=== PATIENT | male | born 1955 | race Hispanic/Latino ===

== ENCOUNTER 2016-09-11 06:45 | Day surgery (SDC) | payer OTHER ==
[2016-09-11] MEDS ORDERED: ECOTRIN PO ONE ×2 (07:41→08:30)
[2016-09-11] MEDS ORDERED: NACL 0.9% 500 ML 500 ML ONE (07:41)
[2016-09-11] MEDS ORDERED: NACL 0.9% 500 ML 500 ML IV SCH (08:00)
[2016-09-11 08:15] LABS: Basophils % (Auto) 0.5 % (0.0-1.8); Eosinophils % (Auto) 1.7 % (0.0-4.3); Hematocrit 46.3 % (35.5-45.6); Hemoglobin 15.9 gm/dl (11.8-15.2); Mean Corpuscular HGB Conc 34 % (32-34); Mean Corpuscular Hemoglobin 34 pg (28-32); Mean Corpuscular Volume 100 fl (84-94); Platelet Count 258 K/mm3 (140-440); Red Blood Count 4.66 M/mm3 (3.65-5.03); Red Cell Distribution Width 13.3 % (13.2-15.2)
[2016-09-11] MEDS ORDERED: HEPARIN/NS 5000 UNIT/500ML(CATH LAB) 1,000 ML IR ONE (08:19)
[2016-09-11] MEDS ORDERED: HEPARIN 10,000 UNITS/10 ML ONE (08:19)
[2016-09-11] MEDS ORDERED: NITROGLYCERIN SYRINGE 0 ML ONE (08:20)
[2016-09-11] MEDS ORDERED: CALAN ONE (08:20)
[2016-09-11] MEDS ORDERED: XYLOCAINE 2% INFILTRATI ONE (08:20)
[2016-09-11] MEDS ORDERED: VERSED ONE (08:21)
[2016-09-11] MEDS ORDERED: SUBLIMAZE ONE (08:21)
[2016-09-11 08:29] LABS: INR 1.01 (0.87-1.13)
[2016-09-11 09:03] LABS: Anion Gap 16 mmol/L; BUN/Creatinine Ratio 14.54; Blood Urea Nitrogen 16 mg/dL (9-20); Carbon Dioxide 23 mmol/L (22-30); Chloride 105.7 mmol/L (98-107); Glucose 108 mg/dL (75-100); Potassium 4.7 mmol/L (3.6-5.0); Sodium 140 mmol/L (137-145)
--- NOTE | 2016-09-11 11:26 | Short Stay Summary ---
Short Stay Documentation Date of service: 09/11/16 - History H&P: obtained from office - Allergies and Medications Current Medications: Allergies carbamazepine [From Tegretol] Allergy (Unverified 09/11/16 06:46) Seizure Penicillins Allergy (Unverified 09/11/16 06:46) Unknown Sulfa (Sulfonamide Antibiotics) Allergy (Unverified 09/11/16 06:46) Unknown Home Medications Medication Instructions Recorded Confirmed Last Taken Type Albuterol Sulfate [Ventolin HFA] 2 puff IH PRN PRN 09/11/16 09/11/16 Unknown History Flurbiprofen 100 mg PO BID 09/11/16 09/11/16 09/10/16 History Fluticasone/Salmeterol [Advair 1 puff IH BID 09/11/16 09/11/16 09/10/16 History 250-50 Diskus] ISOSORBIDE MONOnitrate [Imdur ER] 30 mg PO DAILY 09/11/16 09/11/16 09/10/16 History Lisinopril/Hydrochlorothiazide 1 each PO DAILY 09/11/16 09/11/16 09/10/16 History [Zestoretic 20-12.5 mg] Topiramate [Topamax] 100 mg PO 09/11/16 09/10/16 History Active Medications Sodium Chloride (Nacl 0.9% 500 Ml) 500 mls @ 50 mls/hr IV DIRECT SHAD Stop: 09/11/16 17:59 Last Admin: 09/11/16 08:16 Dose: 50 mls/hr - Brief post op/procedure progress note Date of procedure: 09/11/16 Pre-op diagnosis: abnormal stress test Post-op diagnosis: same Procedure: C - see cath report Anesthesia: local Estimated blood loss: none Pathology: none Condition: stable - Disposition Condition at discharge: Stable Disposition: DC-01 TO HOME OR SELFCARE - Discharge Diagnoses (1) Abnormal stress test Status: Chronic (2) Chest pain Status: Chronic Qualifiers: Chest pain type: C Ischemic chest pain type: I Short Stay Discharge Plan Activity: no restrictions Diet: low fat, low cholesterol, low salt Wound: open to air, keep clean and dry Follow up with: HIREN CAR MD [Staff Physician] - 7 Days Prescriptions: amLODIPine [Norvasc] 5 mg PO DAILY #30 tab
[2016-09-11 14:12] VITALS: BP 128/80
--- NOTE | 2016-09-11 14:41 | Cardiac Catherization Report ---
CARDIAC CATHETERIZATION CLINICAL INFORMATION: The patient is a 60-year-old -[place] gentleman. Patient of with complaints of chest pain of many months' duration. The patient has mildly positive stress test in the past. He was recommended he had stress test done in April 2016, subsequently was advised coronary angiography, but he wants to wait and he still has chest pains everyday. Hence, he is scheduled for cardiac catheterization for definitive diagnosis and treatment. The patient is aware of the procedure, potential complications and alternatives of therapy available. The patient is on Imdur 30 mg, also on atorvastatin 20 mg. He has history of smoking and history of hypertension. At this time, the patient was explained of the procedure, potential complications and alternatives of therapy available. DESCRIPTION OF PROCEDURE: The patient was brought to the catheterization laboratory in a fasting condition. Right wrist area and forearm were thoroughly cleansed with Betadine solution. Sterile drapes were applied. Local anesthesia was achieved using 2% Xylocaine. Right radial artery puncture was made using 21-gauge arterial puncture needle. Subsequently, 5-Vietnamese sheath was introduced. The patient received 3000 units of intravenous heparin and 5 mg of intra-arterial verapamil. Subsequently, 5-Vietnamese multipurpose catheter was used to obtain the angiograms of the left coronary artery in multiple views followed by left ventriculogram done in GRAY projection using hand injection. Subsequently, JR4 catheter was used to obtain the angiograms of the right coronary artery in multiple views. At the end of the procedure, catheter and sheath were removed. It is to be noted his aorta is uncoiled and there is tortuosity in the innominate artery. Following findings were noted. HEMODYNAMICS: 1. Opening aortic pressure 129/95, left ventricular pressure 130/14. No gradient across the aortic valve. Estimated ejection fraction 55%. 2. Left ventriculogram done in GRAY projection showed normal sized left ventricle with normal contractility. Only limited amount of dye was injected. 3. Right coronary artery dominant vessel shows long moderate disease in the proximal and mid part approaching 50%. Distal vessel is without significant disease. 4. Left coronary artery, left main without significant disease. LAD showed mild irregularities throughout with mild calcifications. Circumflex artery shows smooth 50% long proximal lesion and also distally at the horizon of the mid marginal branch, there is a 60% very smooth lesion in some use, may be 60 to 70% noted. Distal circumflex without significant disease. 5. Collaterals none. FINAL IMPRESSION: Normal-sized left ventricle with normal contractility. Right coronary artery shows long moderate disease in the mid part. Left coronary system shows borderline 60 to 70% smooth distal lesion at the horizon of a mid marginal branch in addition to 50% smooth proximal lesion. At this time, we will maximize the medical therapy. The patient is already on Imdur. We will add calcium channel steven and see how he does. If he is still symptomatic, we can consider intervention of the distal circumflex. However, considering this is at the origin of the marginal branch, we would try maximal medical therapy. Intervention of this vessel can be performed if the patient continues to have angina in spite of medical therapy. The patient tolerated the procedure well. No untoward complications were noted. JOB# [id number] JULISA/MISAEL GOLDMAN
== END 2016-09-11 14:00 | disposition home or self-care (01) ==
LOC: CATHLABREC 06:45
PROVIDERS: ATTEND Internal Medicine
DX: I25.10 Atherosclerotic heart disease of native coronary artery without angina pectoris (principal); J43.9 Emphysema, unspecified; E78.5 Hyperlipidemia, unspecified; I10 Essential (primary) hypertension; E66.9 Obesity, unspecified; Z68.31 Body mass index [BMI] 31.0-31.9, adult; Z79.899 Other long term (current) drug therapy; Z88.8 Allergy status to other drugs, medicaments and biological substances; Z88.0 Allergy status to penicillin; Z88.2 Allergy status to sulfonamides; Z98.890 Other specified postprocedural states
CPT/HCPCS: 36415; 80048; 85025; 85610; 85730; 93005; 93010; 93458; C1894; J1644; J2250; J3010; J7040; Q9967

== ENCOUNTER 2016-10-29 06:14 | Day surgery (SDC) | payer OTHER ==
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
--- NOTE | 2016-10-29 07:27 | Anesthesia Day of Surgery ---
Anesthesia Day of Surgery - Day of Surgery Patient Examined: Yes Patient H&P Reviewed: Yes Patient is NPO: Yes
[2016-10-29] MEDS ORDERED: DIPRIVAN 10 MG/ML IV ONE ×2 (07:36)
[2016-10-29] MEDS ORDERED: NACL 0.9% 1000 ML 1,000 ML IV SCH (08:00)
--- NOTE | 2016-10-29 08:00 | Short Stay Summary ---
Short Stay Documentation - Allergies and Medications Current Medications: Allergies carbamazepine [From Tegretol] Allergy (Verified 10/29/16 07:15) Seizure Penicillins Allergy (Verified 10/29/16 07:15) Unknown Sulfa (Sulfonamide Antibiotics) Allergy (Verified 10/29/16 07:15) Unknown Home Medications Medication Instructions Recorded Confirmed Last Taken Type Albuterol Sulfate [Ventolin HFA] 2 puff IH PRN PRN 09/11/16 10/29/16 10/28/16 History Flurbiprofen 100 mg PO BID 09/11/16 10/29/16 10/28/16 History Fluticasone/Salmeterol [Advair 1 puff IH BID 09/11/16 10/29/16 10/28/16 History 250-50 Diskus] ISOSORBIDE MONOnitrate [Imdur ER] 30 mg PO DAILY 09/11/16 10/29/16 10/28/16 History Lisinopril/Hydrochlorothiazide 1 each PO DAILY 09/11/16 10/29/16 09/10/16 History [Zestoretic 20-12.5 mg] Topiramate [Topamax] 100 mg PO DAILY 09/11/16 10/29/16 10/28/16 History amLODIPine [Norvasc] 5 mg PO DAILY #30 tab 09/11/16 10/29/16 10/28/16 Rx AtorvaSTATin 40 mg PO DAILY 10/29/16 10/29/16 10/28/16 History Active Medications Sodium Chloride (Nacl 0.9% 1000 Ml) 1,000 mls @ 50 mls/hr IV DIRECT SHAD Last Admin: 10/29/16 07:31 Dose: 50 mls/hr - Brief post op/procedure progress note Date of procedure: 10/29/16 Pre-op diagnosis: Colon cancer screening Post-op diagnosis: same (1. Very poor prep 2. Diverticulosis coli 3. Internal hemorrhoids) Procedure: Colonoscopy Anesthesia: MAC Findings: as above Surgeon: JOSH BERRY Estimated blood loss: none Pathology: none Condition: stable - Disposition Condition at discharge: Stable Disposition: DC-01 TO HOME OR SELFCARE Short Stay Discharge Plan Activity: no restrictions Weight Bearing Status: Full Weight Bearing Diet: regular, low salt Follow up with: JAGDEEP FOY MD [Primary Care Provider] - 7 Days
[2016-10-29] MEDS ORDERED: WATER FOR IRRIG STERILE IR ONE (08:04)
[2016-10-29 08:15] VITALS: BP 105/74
--- NOTE | 2016-10-29 09:38 | Post Anesthesia Evaluation ---
- Post Anesthesia Evaluation Patient Participated: Yes Airway Patent: Yes Stable Respiratory Function: Yes Nausea/Vomiting: No Temp > 96.8F: Yes Pain Manageable: Yes Adequeate Hydration: Yes Anesthesia Complications: No
== END 2016-10-29 06:15 | disposition home or self-care (01) ==
LOC: GIO 06:14
PROVIDERS: ATTEND Internal Medicine Gastroenterology
DX: Z12.11 Encounter for screening for malignant neoplasm of colon (principal); K64.0 First degree hemorrhoids; K57.30 Diverticulosis of large intestine without perforation or abscess without bleeding; I25.10 Atherosclerotic heart disease of native coronary artery without angina pectoris; J43.9 Emphysema, unspecified; I10 Essential (primary) hypertension; E78.5 Hyperlipidemia, unspecified; F17.200 Nicotine dependence, unspecified, uncomplicated; E66.9 Obesity, unspecified; Z68.31 Body mass index [BMI] 31.0-31.9, adult; F12.90 Cannabis use, unspecified, uncomplicated; Z88.0 Allergy status to penicillin; Z88.2 Allergy status to sulfonamides; Z88.8 Allergy status to other drugs, medicaments and biological substances; Z79.899 Other long term (current) drug therapy; Z98.890 Other specified postprocedural states; Z86.73 Personal history of transient ischemic attack (TIA), and cerebral infarction without residual deficits
CPT/HCPCS: 45378; J2704; J7030

== ENCOUNTER 2016-11-09 07:10 | Outpatient (CLI) | payer OTHER ==
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
== END 2016-11-09 07:11 | disposition home or self-care (01) ==
LOC: FLUORO 07:10
PROVIDERS: ATTEND Internal Medicine Gastroenterology
DX: Z12.11 Encounter for screening for malignant neoplasm of colon (principal); M47.896 Other spondylosis, lumbar region; M16.11 Unilateral primary osteoarthritis, right hip; K57.30 Diverticulosis of large intestine without perforation or abscess without bleeding
CPT/HCPCS: 74270